=== PATIENT | female | born 1935 | race Caucasian/White ===

== ENCOUNTER 2016-09-03 17:50 | Observation (INO) | payer MEDICARE ==
[~2016-09-03] VITALS: Ht 157.5 cm; Wt 75.2 kg
[~2016-09-03 17:50] MED LIST: ONDANSETRON HCL 4 MG/2 ML VIAL IV PUSH ONE; PHENYLEPH/NS 1000 MCG/10 ML SYR IV ONE; PROPOFOL 200 MG/20 ML AMP IV ONE
[2016-09-03 18:02] VITALS: BP 176/81; PULSE 100; RESP 20; TEMP 97.7; O2SAT 96
--- NOTE | 2016-09-03 18:07 | PD ---
Physical Exam Date Seen by Provider: Sep 03, 2016 Time Seen by Provider: 18:00 Narrative Pt is an 81 year old female presenting to the ED for evaluation of left eye abrasion. Pt went to opthalmologist Dr. Prince and pt tore her old cataract incision and blood and fluid is leaking from her eye. Pt cannot see out of her left eye which is new since the injury. She was sent for emergent surgical correction. Injury occured at 1415 this afternoon. Per report from doctor pt has abrasion, hyphema, and ocular hypotony. BP elevated. Pt in no acute distress. Awaiting bed placement. Data Data Last Documented VS Vital Signs Date Time Temp Pulse Resp B/P Pulse Ox O2 Delivery O2 Flow Rate FiO2 09/03/16 18:02 97.7 100 20 176/81 96 Room Air MDM Supervised Visit with LUCERO: Krystle Mac Sep 03, 2016 18:07
[2016-09-03 19:16] LABS: AUTOMATED NEUTROPHIL # 9.4 TH/MM3 (1.8-7.7); BASOPHIL # 0.1 TH/MM3 (0-0.2); BASOPHIL % 0.9 % (0.0-2.0); EOSINOPHIL # 0.1 TH/MM3 (0-0.4); EOSINOPHIL % 0.8 % (0.0-4.0); HEMATOCRIT 33.9 % (35.0-46.0); HEMO FLAGS DIFF FINAL; LYMPH % 12.5 % (9.0-44.0); LYMPHOCYTE # 1.5 TH/MM3 (1.0-4.8); MEAN CELL VOLUME 87.2 FL (80.0-100.0); MEAN CORPUSCULAR HEMOGLOBIN 27.6 PG (27.0-34.0); MEAN CORPUSCULAR HGB CONC 31.7 % (32.0-36.0); MONO % 8.4 % (0.0-8.0); NEUT % 77.4 % (16.0-70.0); PLATELET COUNT 346 TH/MM3 (150-450); RED BLOOD COUNT 3.89 MIL/MM3 (4.00-5.30); RED CELL DISTRIBUTION WIDTH 15.3 % (11.6-17.2); WHITE BLOOD COUNT 12.2 TH/MM3 (4.0-11.0)
[2016-09-03 19:28] LABS: APTT (PATIENT) 26.8 SEC (24.3-30.1); PROTHROMBIN TIME - PATIENT 10.6 SEC (9.8-11.6)
--- NOTE | 2016-09-03 19:44 | PD ---
HPI Chief Complaint: Eye Problems/Injury Time Seen by Provider: 19:37 Travel History International Travel<30 days: No Contact w/Intl Traveler<30days: No Traveled to known affect area: No History of Present Illness HPI 81-year-old female that presents to the ED for evaluation of injury to her left eye. Per patient this morning when she woke up from sleep she accidentally stabbed herself with her nail on the left thigh trying to get the she had of her face. Patient states that she went to see Dr. Prince for ophthalmology today who did a full examination and was told that she had a scratch to her left eye with a hyphema as well as ocular hypotony. Per patient she's had surgeries on the left eye for cataract surgery and apparently the doctor believes that she cut herself just on the same area where she had the surgical incision and now she is leaking fluid. 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 She denies any other medical problems. She denies any pain with it. Patient unclear of her last tetanus shot. Patient was told by her tool/die maker to come immediately to the ED to get emergent surgery. Other than this she has no other complaints. Injury occurred around 11:00 this morning. Patient comes here with paperwork including history of present illness from the stating what he recommended. She does take blood thinners. Including Plavix for stroke. PFSH Past Medical History Hx Anticoagulant Therapy: Yes (PLAVIX, ASPIRIN) Chemotherapy: No (THYROID CA, SURGERY 1976) Cerebrovascular Accident: Yes (APR 2015, RIGHT SIDED WEAKNESS - IN REHAB. ) Diabetes: No (NO DIAGNOSIS, REPORTS FLUCTUATES SUGAR LEVELS) Tetanus Vaccination: Unknown Influenza Vaccination: No Past Surgical History Hysterectomy: Yes Social History Alcohol Use: No Tobacco Use: No Substance Use: No Allergies-Medications (Allergen,Severity, Reaction): Coded Allergies: No Known Allergies (Unverified , 09/03/16) Reported Meds & Prescriptions Reported Meds & Active Scripts Active Reported Colace (Docusate Sodium) 100 Mg Cap 200 Mg PO DAILY Xanax (Alprazolam) 0.5 Mg Tab 0.5 Mg PO BID PRN Tylenol 8 Hour Arthritis (Acetaminophen) 650 Mg Tab 650 Mg PO Q6HR PRN Flonase Nasal [place] (Fluticasone Nasal [place]) 50 Mcg/Act [place] 2 [place] EACH NARE BID Potassium Chloride ER (Potassium Chloride) 10 Meq Tab 10 Meq PO DAILY Lasix (Furosemide) 20 Mg Tab 20 Mg PO DAILY Celexa (Citalopram Hydrobromide) 10 Mg Tab 10 Mg PO DAILY 10 Days Increase to 20mg after 10 days Melatonin 3 Mg Tab 3 Mg PO HS Claritin (Loratadine) 10 Mg Tab 10 Mg PO DAILY Protonix (Pantoprazole Sodium) 40 Mg Tab 40 Mg PO BID Zestril (Lisinopril) 2.5 Mg Tab 2.5 Mg PO DAILY Levothyroxine (Levothyroxine Sodium) 50 Mcg Tab 50 Mcg PO DAILY Cosopt Opth Drops (Dorzolamide-Timolol Opth Drops) 22.3-6.8 Mg/Ml Soln 1 Drop EACH EYE BID Plavix (Clopidogrel Bisulfate) 75 Mg Tab 75 Mg PO DAILY Lipitor (Atorvastatin Calcium) 20 Mg Tab 20 Mg PO HS Review of Systems Except as stated in HPI: all other systems reviewed are Neg Physical Exam Narrative GENERAL: SKIN: Warm and dry. HEAD: Atraumatic. Normocephalic. EYES: Pupils equal and round 4 mm reactive to light and accommodation. No scleral icterus. No injection or drainage. EOM intact bilaterally. Patient does have what appears to be a hyphema to the anterior chamber of the left eye. She has no IUP is on the left eye. She does have what appears to be conjunctival hemorrhage to the medial aspect of the left eye. No obvious foreign body noted. Visual likely is 20/40 on the right and unable to see on the left. IOPs from previous examination were 1920 on the right with known noted on the left. ENT: No nasal bleeding or discharge. Mucous membranes pink and moist. NECK: Trachea midline. No JVD. CARDIOVASCULAR: Regular rate and rhythm. RESPIRATORY: No accessory muscle use. Clear to auscultation. Breath sounds equal bilaterally. GASTROINTESTINAL: Abdomen soft, non-tender, nondistended. Hepatic and splenic margins not palpable. MUSCULOSKELETAL: Extremities without clubbing, cyanosis, or edema. No obvious deformities. NEUROLOGICAL: Awake and alert. No obvious cranial nerve deficits. Motor grossly within normal limits. Five out of 5 muscle strength in the arms and legs. Normal speech. PSYCHIATRIC: Appropriate mood and affect; insight and judgment normal. Data Data Last Documented VS Vital Signs Date Time Temp Pulse Resp B/P Pulse Ox O2 Delivery O2 Flow Rate FiO2 4/19/17 18:02 97.7 100 20 176/81 96 Room Air Orders Electrocardiogram (09/03/16 18:46) Complete Blood Count With Diff (09/03/16 18:46) Basic Metabolic Panel (Bmp) (09/03/16 18:46) Prothrombin Time / Inr (Pt) (09/03/16 18:46) Act Partial Throm Time (Ptt) (09/03/16 18:46) Magnesium (Mg) (09/03/16 18:46) Chest, Single Ap (09/03/16 18:46) Iv Access Insert/Monitor (09/03/16 18:46) Fluticasone Sang Spr (Flonase Sang Spr) (09/03/16 21:00) Loratadine (Claritin) (09/03/16 20:45) Labs Laboratory Tests Test 09/03/16 19:00 White Blood Count 12.2 TH/MM3 Red Blood Count 3.89 MIL/MM3 Hemoglobin 10.7 GM/DL Hematocrit 33.9 % Mean Corpuscular Volume 87.2 FL Mean Corpuscular Hemoglobin 27.6 PG Mean Corpuscular Hemoglobin 31.7 % Concent Red Cell Distribution Width 15.3 % Platelet Count 346 TH/MM3 Mean Platelet Volume 8.4 FL Neutrophils (%) (Auto) 77.4 % Lymphocytes (%) (Auto) 12.5 % Monocytes (%) (Auto) 8.4 % Eosinophils (%) (Auto) 0.8 % Basophils (%) (Auto) 0.9 % Neutrophils # (Auto) 9.4 TH/MM3 Lymphocytes # (Auto) 1.5 TH/MM3 Monocytes # (Auto) 1.0 TH/MM3 Eosinophils # (Auto) 0.1 TH/MM3 Basophils # (Auto) 0.1 TH/MM3 CBC Comment DIFF FINAL Differential Comment Prothrombin Time 10.6 SEC Prothromb Time International 1.0 RATIO Ratio Activated Partial 26.8 SEC Thromboplast Time Sodium Level 140 MEQ/L Potassium Level 4.0 MEQ/L Chloride Level 105 MEQ/L Carbon Dioxide Level 25.6 MEQ/L Anion Gap 9 MEQ/L Blood Urea Nitrogen 12 MG/DL Creatinine 0.81 MG/DL Estimat Glomerular Filtration 68 ML/MIN Rate Random Glucose 125 MG/DL Calcium Level 8.7 MG/DL Magnesium Level 2.1 MG/DL MDM Medical Decision Making Medical Screen Exam Complete: Yes Emergency Medical Condition: Yes Medical Record Reviewed: Yes Interpretation(s) CBC & BMP Diagram 09/03/16 19:00 Last Impressions Chest X-Ray 09/03/16 1846 Signed Impressions: Service Date/Time: Saturday, September 03, 2016 19:18 - CONCLUSION: No acute disease. Jatin Eric Jr., MD [facility] Differential Diagnosis Hyphema versus open globe versus ocular injury versus trauma to the eye versus visual loss Narrative Course 80-year-old female that presents to the ED for evaluation of left eye injury. Patient was properly examined and was found to have signs and symptoms consistent what appears to be traumatic injury to her left eye possibly requiring emergent surgery. Case was discussed with Dr. Merino over the phone who will come here and see the patient and evaluate to see whether patient does require emergent surgery for her symptoms. This was discussed with the patient who agrees with plan. At this time I ordered there pre-surgical blood work. Patient is in agreement with plan. Dr. Merino came and evaluated the patient and recommends admission for surgery tonight. I spoke with Dr. Hester who agrees to admission. Diagnosis Primary Impression: Hyphema, left eye Additional Impressions: Left eye trauma Hypotony of eye Admitting Information Admitting Physician Requests: Observation Noah Eldridge Sep 03, 2016 19:44
[2016-09-03 19:48] LABS: BICARBONATE 25.6 MEQ/L (21.0-32.0); MAGNESIUM 2.1 MG/DL (1.5-2.5)
--- NOTE | 2016-09-03 20:07 | RADRPT ---
EXAM DATE/TIME: 09/03/2016 19:18 [place] COMPARISON: No previous studies available for comparison. EXTERNAL COMPARISON : [facility] 6 weeks ago. INDICATIONS : Short of breath. MEDICAL HISTORY : None. SURGICAL HISTORY : None. ENCOUNTER: Initial ACUITY: 1 day PAIN SCORE: 0/10 LOCATION: Bilateral chest FINDINGS: A single view of the chest demonstrates the lungs to be symmetrically aerated without evidence of mas s, infiltrate or effusion. The cardiomediastinal contours are unremarkable. Osseous structures are intact. CONCLUSION: No acute disease. Jatin Eric Jr., MD on September 03, 2016 at 20:05 Board Certified Radiologist. This report was verified electronically.
[2016-09-03] MEDS ORDERED: MELA0.02 PO (20:18)
[2016-09-03] MEDS ORDERED: LORA-361 PO (20:18)
[2016-09-03] MEDS ORDERED: POTA10TA2 PO (20:18)
[2016-09-03] MEDS ORDERED: LISI-588 PO (20:18)
[2016-09-03] MEDS ORDERED: LEVO50TA4 PO (20:18)
[2016-09-03] MEDS ORDERED: PLAV75TA29 PO (20:18)
[2016-09-03] MEDS ORDERED: ALPR.5 PO (20:18)
[2016-09-03] MEDS ORDERED: LIPI20TA PO (20:18)
[2016-09-03] MEDS ORDERED: FLUT1SPR5 EACH NARE (20:18)
[2016-09-03] MEDS ORDERED: DORZ1SOL2 EACH EYE (20:18)
[2016-09-03] MEDS ORDERED: COLA100C3 PO (20:18)
[2016-09-03] MEDS ORDERED: TYLE650T9 PO (20:18)
[2016-09-03] MEDS ORDERED: CELE10TA PO (20:18)
[2016-09-03] MEDS ORDERED: FURO1TAB62 PO (20:18)
[2016-09-03] MEDS ORDERED: PROT40TA PO (20:18)
[2016-09-03] MEDS ORDERED: LORATADINE 10 MG TAB PO ONE (20:45)
[2016-09-03] MEDS ORDERED: FLUTICASONE PROPIONATE 50 MCG/ACT 16 GM NASAL SPRAY NASAL SCH (21:00)
[2016-09-03] MEDS ORDERED: NALOXONE HCL 0.4 MG/ML AMP IV PRN (21:15)
[2016-09-03] MEDS ORDERED: ACETAMINOPHEN 325 MG TAB PO PRN ×2 (21:15→22:15)
[2016-09-03] MEDS ORDERED: ONDANSETRON HCL 4 MG/2 ML VIAL IVP PRN (21:15)
[2016-09-03] MEDS ORDERED: MAGNESIUM HYDROXIDE SUSP 30 ML CUP PO PRN (21:15)
[2016-09-03] MEDS ORDERED: SODIUM CHLORIDE 0.9% FLUSH 10 ML FLUSH IV FLUSH PRN (21:15)
--- NOTE | 2016-09-03 21:15 | HHI.HP ---
[facility] Non[facility]Staff Admission Diagnosis left eye trauma, hyphema, hypotony Diagnoses: Chief Complaint: Left eye trauma. Travel History International Travel<30 Days: No Contact w/Intl Traveler <30 Da: No Traveled to Known Affected Are: No History of Present Illness Ms. Stallings is a pleasant 81-year-old female with a remote history of left eye retinal detachment who presents to the emergency department today due to accidental left eye injury with her fingernail. Around 2 PM on 09/03/2016 patient FROM a nap and as she was trying to remove her blanket she stabbed herself in her left eye with her fingernail. Patient immediately lost vision in her left eye. She denies any pain unless she touches her left eye. She did not have any external bleeding. Patient contacted her cinder worker and was told that she needs an emergent surgery. Subsequently patient presented to the emergency department. Patient was evaluated by [place] cinder worker Dr. Merino who recommended surgical intervention tonight for probable left globe rupture. Patient denies any chest pain, shortness of breath, fever or chills. Denies any changes in bowel or bladder habits. Review of Systems Except as stated in HPI: all other systems reviewed are Neg Past Family Social History Past Medical History Thyroid cancer 1976 Stroke April 2015 Attention, depression, anxiety Past Surgical History Hysterectomy, right hip replacement, appendectomy, tonsillectomy, cataract surgery, left retinal detachment surgery . Reported Medications Tylenol when necessary Lisinopril 2.5 mg by mouth daily Celexa 10 mg by mouth daily Xanax 0.5 mg twice a day when necessary Dorzolamide-Timolol opth Fluticasone 2 sprays twice a day Atorvastatin 20 mg by mouth daily at bedtime Lasix 20 g by mouth daily Melatonin 3 mg by mouth daily at bedtime Plavix 75 mg by mouth daily Pantoprazole 40 mg twice a day Potassium chloride 10 mEq by mouth daily Loratadine 10 mg by mouth daily Levothyroxine 50 g by mouth daily Allergies: Uncoded Allergies: ativan, lorazepam (Adverse Reaction, Unknown, Psychosis, 09/03/16) patient gets agitated and crazy on this medication. Family History No family history of Alzheimer's or Parkinson's. Sister has history of stroke. Social History Patient denies using alcohol, tobacco or any illicit drugs. Physical Exam Vital Signs Vital Signs Date Time Temp Pulse Resp B/P Pulse Ox O2 Delivery O2 Flow Rate FiO2 09/03/16 18:02 97.7 100 20 176/81 96 Room Air Physical Exam GENERAL: This is a well-nourished, well-developed patient, in no apparent distress. SKIN: No rashes, ecchymoses or lesions. Warm and dry. HEAD: Atraumatic. Normocephalic. No temporal or scalp tenderness. EYES: Left eye has conjunctival hemorrhage in the medial aspect. Almost complete vision loss on the left side. Right eye vision intact. ENT: Nose without bleeding, purulent drainage or septal hematoma. Airway patent. NECK: Trachea midline. No lymphadenopathy. Supple, nontender, no meningeal signs. CARDIOVASCULAR: Regular rate and rhythm without murmurs, gallops, or rubs. No JVD. RESPIRATORY: Clear to auscultation. Breath sounds equal bilaterally. No wheezes , rales, or rhonchi. GASTROINTESTINAL: Abdomen soft, non-tender, nondistended. No guarding. MUSCULOSKELETAL: Extremities without clubbing, cyanosis, or edema. NEUROLOGICAL: Awake and alert. Cranial nerves II through XII intact. No focal neurological deficits. Normal speech. Laboratory Laboratory Tests Test 09/03/16 19:00 White Blood Count 12.2 Red Blood Count 3.89 Hemoglobin 10.7 Hematocrit 33.9 Mean Corpuscular Volume 87.2 Mean Corpuscular Hemoglobin 27.6 Mean Corpuscular Hemoglobin 31.7 Concent Red Cell Distribution Width 15.3 Platelet Count 346 Mean Platelet Volume 8.4 Neutrophils (%) (Auto) 77.4 Lymphocytes (%) (Auto) 12.5 Monocytes (%) (Auto) 8.4 Eosinophils (%) (Auto) 0.8 Basophils (%) (Auto) 0.9 Neutrophils # (Auto) 9.4 Lymphocytes # (Auto) 1.5 Monocytes # (Auto) 1.0 Eosinophils # (Auto) 0.1 Basophils # (Auto) 0.1 CBC Comment DIFF FINAL Differential Comment Prothrombin Time 10.6 Prothromb Time International 1.0 Ratio Activated Partial 26.8 Thromboplast Time Sodium Level 140 Potassium Level 4.0 Chloride Level 105 Carbon Dioxide Level 25.6 Anion Gap 9 Blood Urea Nitrogen 12 Creatinine 0.81 Estimat Glomerular Filtration 68 Rate Random Glucose 125 Calcium Level 8.7 Magnesium Level 2.1 Result Diagram: 09/03/160 09/03/16 190 Imaging Last Impressions Chest X-Ray 09/03/16 1846 Signed Impressions: Service Date/Time: Saturday, September 03, 2016 19:18 - CONCLUSION: No acute disease. Jatin Eric Jr., MD Assessment and Plan Problem List: (1) Left eye trauma ICD Code: S05.92XA Status: Acute (2) Ruptured globe of left eye ICD Code: S05.32XA Status: Acute (3) Hypothyroidism ICD Code: E03.9 Status: Acute (4) Hypertension ICD Code: I10 Status: Acute (5) History of stroke ICD Code: Z86.73 Status: Acute (6) Anxiety and depression ICD Code: F41.9 Status: Acute Assessment and Plan Ms. Stallings is a pleasant 81-year-old female with a history of left eye retinal detachment in the who presents to the emergency department today after an accident show left eye trauma with her fingernail. Patient was evaluated by an outside cinder worker who recommended hospital admission with possibility of emergent surgery. She was evaluated by Dr. Merino (ophthalmology ) who recommended surgery tonight as well. - Left eye trauma - Probable left globe rupture - Surgical exploration and possible intervention by Dr. Wilber schafer. - Discharge in the AM with an outpatient follow up with Dr. Merino at 9AM. - Hypertension - continue lisinopril 2.5 mg daily. - Hypothyroidism - continue levothyroxine 50 g daily. - Anxiety, depression - continue Xanax and Celexa. - History of stroke - patient already to Plavix this morning. Continue Plavix on discharge if okay with ophthalmology. Full code. SCDs for now. Discharge: Will discharge patient in the AM with an outpatient follow up with Dr. Merino. Dagmar Hester DO Sep 03, 2016 9:15 pm
--- NOTE | 2016-09-03 21:24 | PD.CONS ---
History of Present Illness Service Ophthalmology Consult Requested By ED Reason for Consult Injury to left eye Primary Care Physician Non-Staff Diagnoses: History of Present Illness 81 yo F who is currently in a Rehab facility in [place] for right sided weakness , presents to the ED for evaluation of an injury to her left eye. Per patient, around 2 pm today she woke up from a nap and accidentally stabbed herself in her left eye with her fingernail. She immediately had soreness and loss of vision in her left eye. She went to see Dr. Prince (ophthalmology) who did a full examination and was told that she had a hyphema as well as ocular hypotony from a fluid leak, and she needed to have emergency surgery. Ocular history significant for cataract surgery OU (ACIOL OS), and a retinal detachment repair OS - all of her eye surgeries were done in the s in [facility] by Dr. Robbins. Physical Exam Vital Signs Vital Signs Date Time Temp Pulse Resp B/P Pulse Ox O2 Delivery O2 Flow Rate FiO2 09/03/16 18:02 97.7 100 20 176/81 96 Room Air Physical Exam Va cc at near OD 20/30, OS LP EOM full OU, no diplopia CVF full OD, unable OS Pupils OD 2-1, OS 3mm fixed IOP deferred Anterior exam OD - normal eyelid, C/S W&Q, K clear, AC deep, pupil round, PCIOL OS - normal eyelid, subconj, K hazy, AC deep, pupil round, ACIOL Dilated exam OS - no view to back Laboratory Laboratory Tests Test 09/03/16 19:00 White Blood Count 12.2 Red Blood Count 3.89 Hemoglobin 10.7 Hematocrit 33.9 Mean Corpuscular Volume 87.2 Mean Corpuscular Hemoglobin 27.6 Mean Corpuscular Hemoglobin 31.7 Concent Red Cell Distribution Width 15.3 Platelet Count 346 Mean Platelet Volume 8.4 Neutrophils (%) (Auto) 77.4 Lymphocytes (%) (Auto) 12.5 Monocytes (%) (Auto) 8.4 Eosinophils (%) (Auto) 0.8 Basophils (%) (Auto) 0.9 Neutrophils # (Auto) 9.4 Lymphocytes # (Auto) 1.5 Monocytes # (Auto) 1.0 Eosinophils # (Auto) 0.1 Basophils # (Auto) 0.1 CBC Comment DIFF FINAL Differential Comment Prothrombin Time 10.6 Prothromb Time International 1.0 Ratio Activated Partial 26.8 Thromboplast Time Sodium Level 140 Potassium Level 4.0 Chloride Level 105 Carbon Dioxide Level 25.6 Anion Gap 9 Blood Urea Nitrogen 12 Creatinine 0.81 Estimat Glomerular Filtration 68 Rate Random Glucose 125 Calcium Level 8.7 Magnesium Level 2.1 Result Diagram: 09/03/16189909/03/161899 Assessment and Plan Problem List: (1) Ruptured globe of left eye Status: Acute Plan: Most likely cause of hypotony is from an opened cataract incision/ ruptured globe. Emergent exploration and repair of possible ruptured globe of left eye. NPO. Admit to medicine for 23 hr Obs. IV Vanc/Ancef. Tetanus shot. Shield to eye. Discharge in am and follow up with me as an outpatient at 9 am ( [address] [facility]). Berkley Merino MD Sep 03, 2016 21:24
[2016-09-03 21:28] VITALS: BP 153/102; PULSE 104; RESP 18; O2SAT 94
[2016-09-03] MEDS ORDERED: DEXAMETHASONE SOD PHOS 4 MG/ML VIAL ONE (21:33)
[2016-09-03] MEDS ORDERED: ceFAZolin INJ 1,000 MG VIAL ONE (21:33)
[2016-09-03] MEDS ORDERED: GENTAMICIN SULFATE 80 MG/2 ML VIAL ONE (21:38)
[2016-09-03] MEDS ORDERED: methylPREDNISolone SOD SUCC 40 MG/1 ML VIAL ONE (21:38)
[2016-09-03] MEDS ORDERED: ALPRAZolam 0.5 MG TAB PO PRN (22:00)
[2016-09-03] MEDS: TOBRAMYCIN SULFATE 0.3% OPTH OINT 3.5 GM TUBE ONE ×2 (22:31→23:26)
[2016-09-03] MEDS: BALANCED SALT SOLN OPHT IRRIG 15 ML BTL ONE ×2 (22:32→23:26)
[2016-09-03] MEDS: TOBRAMYCIN SULF 0.3% OPHT SOLN 5 ML BTL ONE ×2 (22:32→23:26)
[2016-09-03] MEDS ORDERED: DO NOT ADM ANY ANTICOAGULANT DRUGS PRN (23:40)
--- NOTE | 2016-09-03 23:41 | PD.OP ---
Operative Report Date of Surgery: Sep 03, 2016 Preoperative Diagnosis: (1) Ruptured globe of left eye Postoperative Diagnosis: (1) Ruptured globe of left eye Procedure: ruptured globe repair left eye Anesthesia: General Surgeon: Berkley Merino Yardage Control Operator Forming(s): none Operation and Findings: Patient was consented for surgery and taken back to the operating room. She was put under general anesthesia and prepped and draped in the usual sterile fashion for ophthalmic surgery. A wire lid speculum was placed in the left eye. A 360 conjunctival peritomy was done around the limbus. The scleral tunnel that had been created to insert her ACIOL 30 years ago, was found to be completely open with aqueous leaking out of the incision. A 6-0 silk traction suture was placed inferiorly on the cornea. 12 interrupted 9-0 nylon sutures were placed on the scleral rupture. Viscoat and BSS was injected into the eye to maintain pressure. The incision was found to be watertight. Gentamicin was used to irrigate the eye. 7-0 Vicryl suture was used to close the conjunctiva. Dexamethasone was injected subconjunctivally. Tobradex ointment, a patch, and shield were placed on the left eye. The patient was sent to PACU in stable condition. Berkley Merino MD Sep 03, 2016 23:41
[2016-09-04 00:52] VITALS: BP 152/92; PULSE 97; RESP 16; TEMP 97.9; O2SAT 97
--- NOTE | 2016-09-04 03:50 | HHI.PR ---
Subjective Remarks Patient was seen at around 6AM on 09/04/2016 Follow up for accidental self inflicted left eye injury. Patient underwent ophthalmological surgery for left globe rupture repair. Patient is resting in bed. She reports some pain and she took a dose of Acetaminophen. Objective Vitals Vital Signs Date Time Temp Pulse Resp B/P Pulse Ox O2 Delivery O2 Flow Rate FiO2 09/04/16 00:52 97.9 97 16 152/92 97 09/04/16 00:25 99.2 89 15 146/81 96 Nasal Cannula 3 09/04/16 00:15 87 15 149/93 95 Nasal Cannula 3 09/04/16 00:00 82 15 154/91 96 Nasal Cannula 3 09/03/16 23:50 112 14 165/107 98 Simple Mask 10 09/03/16 23:45 108 14 173/106 96 Simple Mask 10 09/03/16 23:42 98.7 114 14 160/103 91 Simple Mask 4 09/03/16 21:28 104 18 153/102 94 Room Air 09/03/16 18:02 97.7 100 20 176/81 96 Room Air I/O 09/03/16 09/03/16 09/03/16 09/04/16 09/04/16 09/04/16 07:00 15:00 23:00 07:00 15:00 23:00 Intake Total 800 ml Output Total 0 ml Balance 800 ml Intake Oral 0 ml IV Total 100 ml Other 700 ml Output Estimated Blood Loss 0 ml Other 0 ml # Voids 1 Result Diagram: 09/03/16 1900 09/03/16 1900 Imaging Last Impressions Chest X-Ray 09/03/16 1846 Signed Impressions: Service Date/Time: Saturday, September 03, 2016 19:18 - CONCLUSION: No acute disease. Jatin Eric Jr., MD Objective Remarks GENERAL: Alert, NAD. SKIN: Warm and dry. HEAD: Normocephalic. EYES: No scleral icterus. No injection or drainage. NECK: Supple, trachea midline. No JVD or lymphadenopathy. CARDIOVASCULAR: Regular rate and rhythm without murmurs, gallops, or rubs. RESPIRATORY: Breath sounds equal bilaterally. No accessory muscle use. GASTROINTESTINAL: Abdomen soft, non-tender, nondistended. MUSCULOSKELETAL: No cyanosis, or edema. BACK: Nontender without obvious deformity. No CVA tenderness. Procedures Left A/P Problem List: (1) Left eye trauma ICD Code: S05.92XA Status: Acute (2) Ruptured globe of left eye ICD Code: S05.32XA Status: Acute (3) Hypothyroidism ICD Code: E03.9 Status: Acute (4) Hypertension ICD Code: I10 Status: Acute (5) History of stroke ICD Code: Z86.73 Status: Acute (6) Anxiety and depression ICD Code: F41.9 Status: Acute Assessment and Plan Ms. Stallings is a pleasant 81-year-old female with a history of left eye retinal detachment in the who presents to the emergency department today after an accident show left eye trauma with her fingernail. Patient was evaluated by an outside local delivery driver who recommended hospital admission with possibility of emergent surgery. She was evaluated by Dr. Merino (ophthalmology ) who recommended surgery tonight as well. - Left eye trauma - Probable left globe rupture - Surgical exploration and possible intervention by Dr. Wilber schafer. - Discharge this AM with an outpatient follow up with Dr. Merino at 9AM. - Will start patient on Percocet 5/325mg Q6hrs PRN for pain. - Hypertension - continue lisinopril 2.5 mg daily. - Hypothyroidism - continue levothyroxine 50 g daily. - Anxiety, depression - continue Xanax and Celexa. - History of stroke - patient already to Plavix this morning. Should be okay to continue unless Dr. Merino says otherwise. Full code. SCDs for now. Discharge patient to [facility]. Condition on discharge: Improved Regular Diet as tolerated Ad [employer]bi activity Rx written: Percocet 5/325 Q6hrs PRN for pain # 20. Follow-up with primary care physician within one week. Ophthalmology appointment this morning at 9AM. Dagmar Hester DO Sep 04, 2016 03:50
[2016-09-04 04:01] VITALS: BP 142/76; PULSE 105; RESP 16; TEMP 97; O2SAT 94
[2016-09-04 04:05] VITALS: O2SAT 95
[2016-09-04] MEDS ORDERED: PERC5TAB12 PO (05:58)
[2016-09-04] MEDS ORDERED: oxyCODONE/ACETAMINOPHEN 5 MG/325 MG TAB PO PRN (06:00)
[2016-09-04] MEDS ORDERED: LEVOTHYROXINE SODIUM 50 MCG TAB PO SCH (06:00)
--- NOTE | 2016-09-04 07:23 | HHI.PR ---
Subjective Remarks no headache, mild eye discomfort/pain- took 1/2 Percocet up ambulating with a walker- states baseline no dizziness, nausea or vomiting Objective Vitals Vital Signs Date Time Temp Pulse Resp B/P Pulse Ox O2 Delivery O2 Flow Rate FiO2 09/04/16 04:01 97.0 105 16 142/76 94 09/04/16 00:52 97.9 97 16 152/92 97 09/04/16 00:25 99.2 89 15 146/81 96 Nasal Cannula 3 09/04/16 00:15 87 15 149/93 95 Nasal Cannula 3 09/04/16 00:00 82 15 154/91 96 Nasal Cannula 3 09/03/16 23:50 112 14 165/107 98 Simple Mask 10 09/03/16 23:45 108 14 173/106 96 Simple Mask 10 09/03/16 23:42 98.7 114 14 160/103 91 Simple Mask 4 09/03/16 21:28 104 18 153/102 94 Room Air 09/03/16 18:02 97.7 100 20 176/81 96 Room Air I/O 09/03/16 09/03/16 09/03/16 09/04/16 09/04/16 09/04/16 07:00 15:00 23:00 07:00 15:00 23:00 Intake Total 950 ml Output Total 0 ml Balance 950 ml Intake Oral 150 ml IV Total 100 ml Other 700 ml Output Estimated Blood Loss 0 ml Other 0 ml # Voids 3 # Bowel Movements 0 Result Diagram: 09/03/16 1900 09/03/16 190 Imaging Last Impressions Chest X-Ray 09/03/16 1846 Signed Impressions: Service Date/Time: Saturday, September 03, 2016 19:18 - CONCLUSION: No acute disease. Jatin Eric Jr., MD Objective Remarks awake and alert, oriented x [address]- left neck supple lungs clear regular rhythm HR- 82/min abdomen soft, nontender' extremities no edema Procedures 09/03- repair of ruptured of left eye globe A/P Problem List: (1) Left eye trauma ICD Code: S05.92XA Status: Acute (2) Ruptured globe of left eye ICD Code: S05.32XA Status: Acute (3) Hypothyroidism ICD Code: E03.9 Status: Acute (4) Hypertension ICD Code: I10 Status: Acute (5) History of stroke ICD Code: Z86.73 Status: Acute (6) Anxiety and depression ICD Code: F41.9 Status: Acute Assessment and Plan Ms. Stallings is a pleasant 81-year-old female with a history of left eye retinal detachment in the who presents to the emergency department today after an accident show left eye trauma with her fingernail. Patient was evaluated by an outside inside horticultural specialty grower who recommended hospital admission with possibility of emergent surgery. She was evaluated by Dr. Merino (ophthalmology ) who recommended surgery tonight as well. - Left eye trauma- Probable left globe rupture S/P repair 09/03 - Surgical exploration and possible intervention by Dr. Merino - Discharge this AM with an outpatient follow up with Dr. Merino at 9AM. - Percocet 5/325mg Q6hrs PRN for pain. - Hypertension - continue lisinopril 2.5 mg daily. - Hypothyroidism - continue levothyroxine 50 g daily. - Anxiety, depression - continue Xanax and Celexa. - History of stroke - patient already to Plavix this morning. Should be okay to continue unless Dr. Merino says otherwise. Full code. SCDs for now. Daughter is taking her to eye clinic for appt Discharge patient to [facility]. Condition on discharge: Improved Regular Diet as tolerated [employer] activity Rx written: Percocet 5/325 Q6hrs PRN for pain # 20. Follow-up with primary care physician within one week. Ophthalmology appointment this morning at 9AM. Mirna Sanchez MD Sep 04, 2016 07:23 Mirna Sanchez MD Sep 04, 2016 07:23
[2016-09-04 08:54] LABS: AUTOMATED NEUTROPHIL # 9.1 TH/MM3 (1.8-7.7); BASOPHIL % 0.4 % (0.0-2.0); HEMATOCRIT 32.4 % (35.0-46.0); HEMO FLAGS DIFF FINAL; LYMPH % 6.3 % (9.0-44.0); LYMPHOCYTE # 0.6 TH/MM3 (1.0-4.8); MEAN CELL VOLUME 87.4 FL (80.0-100.0); MEAN CORPUSCULAR HEMOGLOBIN 28.4 PG (27.0-34.0); MEAN CORPUSCULAR HGB CONC 32.5 % (32.0-36.0); MONO % 2.1 % (0.0-8.0); NEUT % 91.2 % (16.0-70.0); PLATELET COUNT 314 TH/MM3 (150-450); RED CELL DISTRIBUTION WIDTH 15.2 % (11.6-17.2)
[2016-09-04] MEDS ORDERED: POTASSIUM CHLORIDE 10 MEQ CONTROLLED RELEASE TAB PO SCH (09:00)
[2016-09-04] MEDS ORDERED: FUROSEMIDE 20 MG TAB PO SCH (09:00)
[2016-09-04] MEDS ORDERED: SODIUM CHLORIDE 0.9% FLUSH 10 ML FLUSH IV FLUSH SCH (09:00)
[2016-09-04] MEDS ORDERED: CITALOPRAM HYDROBROMIDE 20 MG TAB PO SCH (09:00)
[2016-09-04] MEDS ORDERED: PANTOPRAZOLE SOD 40 MG DELAYED RELEASE TAB PO SCH (09:00)
[2016-09-04] MEDS ORDERED: LISINOPRIL 5 MG TAB PO SCH (09:00)
[2016-09-04] MEDS ORDERED: DORZOLAMIDE/TIMOLOL OPTH SOLN 10 ML BTL EACH EYE SCH (09:00)
[2016-09-04] MEDS ORDERED: LORATADINE 10 MG TAB PO SCH (09:00)
[2016-09-04 09:13] LABS: BICARBONATE 25.4 MEQ/L (21.0-32.0); POTASSIUM 3.8 MEQ/L (3.5-5.1)
--- NOTE | 2016-09-04 13:46 | EKG ---
Date Performed: 09/03/2016 Time Performed: 19:13:30 PTAGE: 81 years EKG: Sinus rhythm POSSIBLE ANTERIOR MYOCARDIAL INFARCTION BORDERLINE ECG INTERPRETATION BASED ON A DEFAULT AGE OF 38 Y EARS NO PREVIOUS TRACING DOCTOR: Sigifredo Brothers Interpretating Date/Time 09/04/2016 13:42:04
[2016-09-04] MEDS ORDERED: ATORVASTATIN 20 MG TAB PO SCH (21:00)
[2016-09-04] MEDS ORDERED: MELATONIN 5 MG TAB PO SCH (21:00)
[2016-09-29] MEDS ORDERED: VIGA0.5D LEFT EYE (10:38)
[2016-09-29] MEDS ORDERED: PRED1SUS LEFT EYE (10:38)
[2016-11-13] MEDS ORDERED: FERR324T4 PO (09:58)
== END 2016-09-04 09:00 ==
LOC: NEPC 17:50 → NEDA 21:02 → HOCA 09-04 00:30
PROVIDERS: ADMIT Internal Medicine; ATTEND Internal Medicine
DX: S05.8X2A Other injuries of left eye and orbit, initial encounter (principal); S05.32XA Ocular laceration without prolapse or loss of intraocular tissue, left eye, initial encounter; E03.9 Hypothyroidism, unspecified; I10 Essential (primary) hypertension; Z86.73 Personal history of transient ischemic attack (TIA), and cerebral infarction without residual deficits; H21.02 Hyphema, left eye; H44.40 Unspecified hypotony of eye; H54.42 Blindness, left eye, normal vision right eye; Z79.01 Long term (current) use of anticoagulants; R53.1 Weakness; Z79.899 Other long term (current) drug therapy; Z85.850 Personal history of malignant neoplasm of thyroid; F41.9 Anxiety disorder, unspecified
CPT/HCPCS: 00140; 65280; 71010; 80048; 83735; 85025; 85610; 85730; 93005; 96374; 97163; 99284; G0378; G8987; G8988; J0690; J1100; J1580; J2370; J2405; J3010; J2920